=== PATIENT | male | born 1955 | race Caucasian/White ===

== ENCOUNTER 2018-11-30 06:05 | Inpatient (IN) ==
--- NOTE | 2018-11-17 08:45 | ANES ---
Anesthesia Pre Procedure Eval HOME MEDICATIONS amlodipine 10 mg tablet 10 mg PO DAILY 10/16/17 [Last Taken Unknown] antiarthritic combination no.2 900 mg tablet 900 mg PO DAILY 10/16/17 [Last Taken Unknown] naproxen sodium 220 mg capsule 220 mg PO BID PRN 10/16/17 [Last Taken Unknown] C-PAP See Dose Instructions .ROUTE .MEDSUPPLY #1 ea 10/11/18 [Last Taken Unknown] lisinopril 10 mg tablet 10 mg PO BID 10/11/18 [Last Taken Unknown] turmeric 400 mg capsule mg PO DAILY cap 10/11/18 [Last Taken Unknown] furosemide 20 mg tablet 10 mg PO DAILY tab 11/15/18 [Last Taken Unknown] Allergies/Adverse Reactions: Allergies Allergy/AdvReac Type Severity Reaction Status Date / Time No Known Allergies Allergy Verified 11/15/18 10:36 - Planned Procedure Planned Procedure: Right Arthroplasty Total Hip Medication List Reviewed:: Yes Allergies Verified: Yes Medical History (Updated 11/16/18 @ 13:54 by Juan Valencia MD) Hip pain, right Onset Date: ~2017 Hypertension Onset Date: Unknown Sleep apnea, obstructive Onset Date: 2010 CVA (cerebral vascular accident) Onset Date: 2010 Surgical History (Updated 10/11/18 @ 08:00 by Radha Sánchez RN) H/O vasectomy Onset Date: 1988 History of tonsillectomy Onset Date: Unknown Family History (Updated 10/16/17 @ 10:17 by Radha Sánchez, RN) Father Mesothelioma Mother Cancer lymphoma Brother Parkinson disease Sister Cancer breast cancer Sister Cancer breast cancer Daughter Cancer breast cancer - Family Anesthesia History Family History:: no untoward family reactions to anesthesia, no familial bleeding tendencies, no family history of clotting disorders, no family history of premature - Airway/Neck/Teeth Within Normal Limits:: Yes Teeth Condition: intact Neck Exam: full range of motion Mallampatti Score: 2 Thyromental (T-M) distance: > 6 cm Mandibulo Hyoid distance: > 3 cm - Respiratory Respiratory History: sleep apnea, CPAP/BiPAP home use Respiratory Physical: lungs clear Smoking Status: Former smoker Sleep Apnea currently treated: Yes Sleep Apnea by current assessment: Yes Discussed Risks/Treatment of MARGUERITE: Yes - Cardiovascular Cardiac History: hypertension, hyperlipidemia Tolerate Activity: Fair Heart Sounds: S1 & S2, Regular - Anesthesia Assessment and Plan ASA Class: PS, II Anesthesia Type Plan: Spinal
[~2018-11-30 06:05] MED LIST: RINGER'S SOLUTION,LACTATED 1,000 ML IV PRN; ROPIVACAINE HCL/PF 100 MG, EPINEPHrine 0.2 MG, KETOROLAC TROMETHAMINE 30 MG in NORMAL S... IJ PRN; TRANEXAMIC ACID 1,000 MG in NORMAL SALINE 100 ML IV PRN; ceFAZolin SODIUM 1 GM VIAL IV PRN
[2018-11-30] MEDS ORDERED: ACETAMINOPHEN 500 MG TABLET PO PRN (09:57)
[2018-11-30] MEDS ORDERED: MAGNESIUM HYDROXIDE 30 ML UDC PO PRN (09:57)
[2018-11-30] MEDS ORDERED: oxyCODONE HCL/ACETAMINOPHEN 1 TAB TABLET PO PRN (09:57)
[2018-11-30] MEDS ORDERED: NORMAL SALINE 1,000 ML IV PRN (09:57)
[2018-11-30] MEDS ORDERED: MORPHINE SULFATE 2 MG/ML DISP.SYRIN IV PRN (09:57)
[2018-11-30] MEDS ORDERED: ONDANSETRON HCL/PF 2 MG/ML VIAL IV PRN (09:57)
[2018-11-30] MEDS ORDERED: MAG HYDROX/ALUMINUM HYD/SIMETH 30 ML UDC PO PRN (09:57)
--- NOTE | 2018-11-30 10:08 | OR ---
Operative Report - Dictated Report Narrative: Date: 11/30/2018 Preoperative diagnosis: Right hip degenerative joint disease. Postoperative diagnosis: Right hip degenerative joint disease. Procedure: Right total hip arthroplasty Surgeon: Juan Valencia M.D. Tray Filler: Tim Roman PA-C provided a set of essential, skilled, educated hands that assisted in positioning, transfer, retraction, manipulation, irrigation, closure of wounds, and placement of dressings all of which could not be provided by the available surgical crew. Anesthesia: Spinal and local periarticular joint injection. Complications: None Specimens: Femoral head/neck Estimated blood loss: 200 milliliters. Retained implants: Depuy Curry size 6 femoral stem standard offset. Size 58 mm ouside diameter 3- hole [place] Gription acetabular cup. 58 mm outside by 36 mm inside diameter highly cross-linked acetabular liner. 36 mmdiameter + 5 mm ceramic femoral head. Cancellous 6.5mm screw 30 mm length Indications: Reyes is a 63-year-old male who has been followed in my clinic for period of time with significant complaints of right hip pain consistent with arthritic changes. He has failed conservative measures including but not limited to activity modification, passage of time, medications, and other conservative measures. Patient wished to proceed with surgical treatment. The risks, benefits, and alternatives were discussed in clinic. The risks of , blood clots, bleeding, infection, nerve/tendon blood vessel/ injury, malposition of components, dislocation and/or instability of joint, intraoperative fracture, postoperative limited range of motion, persistent pain, failure of components, and need for additional procedures. Patient wished to proceed. Consent was obtained after answering all questions. Procedure: After marking the correct extremity on the floor, the patient was taken to the operating room. A timeout was performed. IV antibiotics consisting of 2 g of Ancef were administered prior to the procedure. A spinal anesthetic was induced by anesthesia. A Decker catheter was inserted. The patient was then transitioned to a lateral position on a well-padded pegboard. And an axillary roll was placed. The head was in neutral position. The non- operative down leg was well-padded with SCD and MANN hose in place. The arms were supported and padded to protect from any undue pressure on the bony prominences and nerves. Well-padded anterior and posterior pelvic and chest posts were secured in order to maintain a stable position of the pelvis. This was placed so that the pelvis was perpendicular to the floor. The body was in line with the pelvis. Once it was felt that we had protected all the bony prominences and the patient was well secured with a safety belt as well, the leg was pre-scrubbed with alcohol, prepped and draped in a standard sterile fashion. A standard anterior lateral hip incision was marked out over the greater trochanter. Ioban drapes were then placed. The skin incision was then made. Sharp dissection with a scalpel utilizing cautery for hemostasis was carried out down to the gluteus and iliotibial band fascia. This was split in line with the skin incision. The greater trochanter bursa was excised. The anterior and posterior margins of the abductor tendon were identified. The anterior 1/3 of the tendon was tagged and reflected off the greater trochanter leaving a sleeve of tendon for repair at the completion of the case. This exposed the underlying hip joint capsule. A limb length stitch was placed in the skin and referenced off a pierre on the greater trochanter for evaluation of intraoperative limb lengths. An inverted T-type capsulotomy was made extending this up to the brim of the acetabulum. Using Homans to assist with elevation of the soft tissues off the anterior, superior, and inferior aspects of the femoral neck, the hip was then placed in a figure 4 position and the femoral head was dislocated. With the leg in an externally rotated and adducted position, the cutting flag was utilized in order to pierre for a standard femoral neck cut approximately a fingerbreadth above the level of the lesser trochanter. This was done while protecting the surrounding soft tissues with Homans. The femoral head was then removed and sized for guidance on preparation of the acetabulum. It was noted that there was loss of articular cartilage on both the femoral head and weightbearing portions of the acetabulum. We then returned the leg to the table and turned our attention to the acetabulum. While protecting the surrounding soft tissues, the labrum and remaining tissue in the fovea were excised using a scalpel and cautery. A series of reamers up to size 57 millimeter were utilized to prepare the acetabulum. The final reamer had good purchase and exposed the bleeding subchondral bone. The acetabulum was then thoroughly irrigated ensuring that all bony and cartilaginous materials were removed and the final acetabular shell was impacted into place. This was placed in approximately 45 degrees of abduction and 20 degrees of anteversion utilizing the outrigger and body axis for alignment. This had a good press fit. one 6.5 x 30 mm cancellous screw was placed in the posterior superior quadrant of the acetabulum. The shell was then thoroughly irrigated and the final polyethylene was impacted into place ensuring that it seated completely. This was then protected with a sponge while we returned our attention to the femur. With the leg in a figure 4 position utilizing Homans for soft tissue protection, a box cutting osteotome, followed by Charnley awl, followed by serial reamers and broaches were utilized in order to prepare the femur. It was found that a size 6 broach gave good axial and rotational stability. The calcar reamer was utilized in order to clean up the cut edges. The proximal femur was visualized to ensure that there were no signs of fracture. A series of heads and necks were trialed. It was found that a standard neck and a + 5 mm femoral head gave good overall stability. There was minimal longitudinal instability. With the leg in the position of sleep the femoral head was well covered. Hip range of motion was able to reach full extension and external rotation to greater than 75 degrees prior to impingement along the posterior acetabulum. The hip was able to be flexed to greater than 90 degrees with internal rotation greater than 60 degrees prior to anterior impingement. The limb lengths were near equal based on comparison to the contralateral side in the prior placed limb length stitch. At this point was felt these were the appropriately sized femoral components. The trial implants were removed. The femur was thoroughly irrigated. The final implants were impacted in the place and the hip was reduced. After ensuring that there was no damage to the proximal femur, the standard periarticular joint injection of ropivacaine, Toradol, and epinephrine were injected into the joint capsule and surrounding soft tissues. The capsule was repaired with interrupted #1 Vicryl. The abductor tendon was repaired to the greater trochanter utilizing #5 Ethibond. This was oversewn with #1 Vicryl. The fascia was closed with running #1 Stratafix PDS suture. The wound was thoroughly irrigated as we closed in layers. The deep fat layers were closed with running 0 Stratafix PDS. The subcutaneous tissue was closed with interrupted 3-0 Vicryl and the skin with a running subcuticular 4-0 monocryl and Prineo dressing. All sponge, needle, blade, and instrument counts were correct prior to closing the wounds. Sterile dressings consisting of Xeroform, 4 x 4's, ABD, and tape were applied. The patient was awoken and transferred to his hospital bed and then to the postanesthesia care unit in stable condition. Postoperative condition: The plan is to admit to the medical/surgical inpatient floor postoperatively. There will be a projected 2 to 4 day hospital stay. Postoperatively 24 hours of IV antibiotics, pain control, physical therapy, occupational therapy, and medical comanagement will be utilized. Patient will be weightbearing as tolerated with anterior hip precautions. Postoperative films will be obtained in the recovery room.
--- NOTE | 2018-11-30 10:23 | ANES ---
Post Anesthesia Discharge - Transfer of Care Transfer of Care handoff given to nurse: Yes - Discharge from PACU Discharge from PACU when meets criteria: Yes - Comfortable in PACU.
--- NOTE | 2018-11-30 10:57 | ANES ---
Post Anesthesia Assessment - Vital Signs Vitals: Last Vital Signs Temp 36.3 C 11/30/18 10:40 Pulse 71 11/30/18 10:40 Resp 12 11/30/18 10:40 BP 113/78 11/30/18 10:40 Pulse Ox 97 11/30/18 10:40 Airway Patency: Normal - Mental Status Level Of Consciousness: Awake, Alert, Appropriate - Pain Level Pain Score: 0 - N/V Assessment Nausea/Vomiting Presence: None Dehydration:: No
[2018-11-30] MEDS: oxyCODONE HCL/ACETAMINOPHEN 1 TAB TABLET PO PRN ×3 (11:20→19:35)
[2018-11-30] MEDS: ceFAZolin SODIUM 2 GM in DEXTROSE 5 % IN WATER 50 ML IV SCH ×4 (14:40→21:24)
[2018-11-30] MEDS ORDERED: SENNOSIDES/DOCUSATE SODIUM 1 TAB TABLET PO SCH (21:00)
[2018-12-01] MEDS: oxyCODONE HCL/ACETAMINOPHEN 1 TAB TABLET PO PRN ×3 (03:02→11:04)
[2018-12-01] MEDS: ceFAZolin SODIUM 2 GM in DEXTROSE 5 % IN WATER 50 ML IV SCH ×2 (05:08)
[2018-12-01 05:41] LABS: Anion Gap 11.8 mmol/L (6.8-13.8); Calcium * 8.3 mg/dL (7.9-10.9); Carbon Dioxide 28.5 mmol/L (24-32.6); Estimated Creat Clear 88.2; Potassium 4.3 mmol/L (3.4-4.6)
[2018-12-01 05:58] LABS: Hematocrit 36.6 % (42.0-52.0); Hemoglobin 12.3 gm/dL (13.5-18.0); Mean Cell Volume 92.7 fl (78-100); Mean Corpuscular Hemoglobin 31.1 pg (27-31); Mean Corpuscular Hgb Conc 33.6 g/dl (32-36); Mean Platelet Volume 9.5 fl (8-11.3); Platelet Count 203 K/mm3 (150-450); Red Blood Count 3.95 M/mm3 (4.7-6.0); Red Cell Distribution Width 12.4 % (11.5-14.0); White Blood Count 8.6 K/mm3 (4.0-10.5)
[2018-12-01] MEDS ORDERED: ENOXAPARIN SODIUM 40 MG/0.4 ML SYRG SC SCH (08:58)
--- NOTE | 2018-12-01 12:12 | DS ---
(1) Status post total hip replacement, right Problem: Acute Date of Discharge:: 12/01/18 Description of Stay: 63-year-old male postop day 1 status post right total hip arthroplasty. Patient has had an uncomplicated stay after being admitted postsurgical. Pain is well controlled at a 5/10 with p.o. pain medication. He has been up and ambulated with physical therapy and met all goals. Bandages were removed, patient had minimal drainage, it was reinforced with Dermabond. Exam today reveals 5/5 plantarflexion and dorsiflexion of ankle, sensation intact light touch, distal capillary refill brisk, diffuse tenderness about right hip. Plan to discharge home patient will follow-up at 2 weeks postoperative in the orthopedic outpatient clinic. Discussed continued DVT treatment with Lovenox for 10 days followed by 325 mg aspirin daily. Patient will begin outpatient PT on 12/02/18. Patient will call orthopedic outpatient clinic with any acute questions or concerns. He can continue weightbearing as tolerated with anterior precautions. Patient will be given a prescription for a bariatric walker to be used as his assistive device. Patient will need the walker for a temporary time while he recovers from surgical intervention of his right total hip arthroplasty. Patient expresses the want to use a walker and willingness. Patient's house is able to use a walker to ambulate without significant complication. Patient has worked with physical therapy to use a walker to ambulate in his hospital stay. Procedures Performed: see notes below List Procedures: Status post right total hip arthroplasty Results and Findings: Lab Pending Results 12/01/18 05:31: WBC 8.6, RBC 3.95 L, Hgb 12.3 L, Hct 36.6 L, MCV 92.7, MCH 31.1 H, MCHC 33.6, RDW 12.4, Plt Count 203, MPV 9.5 12/01/18 05:31: Sodium 140, Plasma Sodium 141, Potassium 4.3, Chloride 104, Carbon Dioxide 28.5, Anion Gap 11.8, BUN 18, Creatinine 1.00, Est GFR (Non-Af Amer) 81, BUN/Creatinine Ratio 18.0, Random Glucose 133 H, Calcium 8.3 Discharge Location: Home Disposition: Home self-care Condition: Good Discharge Activity: Activity as tolerated, Weight bearing - Assistive device PRN, anterior precautions Discharge Diet: General/regular food Referrals: Juan Valencia MD [Staff Physician] - 12/15/18 9:00 am Problem Oriented Discharge Instructions to Patient/Family: Total Hip Replacement, [id number] Print Language (Greenlandic or Malagasy Available): Greenlandic Additional Patient Instructions (free text): Follow up in the office with Dr. Valencia on 12/25/18 at 9:00am. Prescriptions (Any new or edited meds): Enoxaparin Sodium [Lovenox] 40 mg SC Q24H #9 disp.syrin oxyCODONE HCL/ACETAMINOPHEN [Percocet 5 MG/325 MG] 1 - 2 tab PO Q4H PRN #90 tab PRN Reason: Severe Pain (Pain Scale 7-10) Complete Home Medications List: Complete Home Medication List: amlodipine 10 mg tablet 10 mg PO DAILY 10/16/17 antiarthritic combination no.2 900 mg tablet 900 mg PO DAILY 10/16/17 naproxen sodium 220 mg capsule 220 mg PO BID PRN 10/16/17 C-PAP See Dose Instructions .ROUTE .MEDSUPPLY #1 ea 10/11/18 lisinopril 10 mg tablet 10 mg PO BID 10/11/18 turmeric 400 mg capsule 400 mg PO DAILY cap 10/11/18 furosemide 20 mg tablet 10 mg PO DAILY tab 11/15/18 Spironolactone 25 mg PO DAILY 11/17/18 Walker [Addy Cano] See Dose Instructions ea .ROUTE .MEDSUPPLY 11/30/18 Enoxaparin Sodium [Lovenox] 40 mg SC Q24H #9 disp.syrin 12/01/18 oxyCODONE HCL/ACETAMINOPHEN [Percocet 5 MG/325 MG] 1 - 2 tab PO Q4H PRN #90 tab 12/01/18 Amb Orders for Discharge: PT Evaluation and Treatment* Location: None Selected
[2018-12-01 15:11] VITALS: BP 156/86
== END 2018-12-01 13:30 | disposition home or self-care (01) | DRG 470 ==
LOC: MS 06:05
PROVIDERS: ADMIT Orthopaedic Surgery; ATTEND Orthopaedic Surgery
DX: E66.9 Obesity, unspecified; M25.551 Pain in right hip; G47.33 Obstructive sleep apnea (adult) (pediatric); R60.0 Localized edema; I10 Essential (primary) hypertension; M16.10 Unilateral primary osteoarthritis, unspecified hip
CPT/HCPCS: 36415; 73502; 80048; 85027; 94660; 97116; 97161; 97165; 97530